=== PATIENT | male | born 1930 | race Caucasian/White ===

== ENCOUNTER 2020-12-21 14:02 | Inpatient (IN) | payer MEDICARE, OTHER ==
[~2020-12-21] VITALS: Ht 172.7 cm; Wt 68.0 kg
[2020-12-21] MEDS ORDERED: IV NORMAL SALINE 1000 ML BAG IV ONE (14:15)
--- NOTE | 2020-12-21 14:20 | NUR ---
PT out of ER for CT.
[2020-12-21] MEDS ORDERED: ASCO500T10 PO (14:39)
[2020-12-21] MEDS ORDERED: MULT-1045 PO (14:39)
[2020-12-21] MEDS ORDERED: MAG-55 PO (14:39)
[2020-12-21] MEDS ORDERED: LACT10SO3 PO (14:39)
[2020-12-21] MEDS ORDERED: DIVA250T4 PO (14:39)
[2020-12-21] MEDS ORDERED: DORZ10DR13 LEFTEYE (14:39)
[2020-12-21] MEDS ORDERED: MAGN400O6 PO (14:39)
[2020-12-21] MEDS ORDERED: ACET160S2 PO (14:39)
[2020-12-21] MEDS ORDERED: DOCU-141 PO (14:39)
[2020-12-21] MEDS ORDERED: BIMA2.5D5 EACHEYE (14:39)
[2020-12-21] MEDS ORDERED: NA P133E4 RC (14:39)
[2020-12-21] MEDS ORDERED: QUET25TA PO (14:39)
[2020-12-21 15:45] LABS: BASOPHILS % (AUTO) 0.2 % (0.0-2.0); EOSINOPHILS % (AUTO) 0.2 % (0.0-7.0); HEMATOCRIT 43.2 % (36.7-47.1); HEMOGLOBIN 15.4 g/dL (12.5-16.3); LYMPHOCYTES # (AUTO) 0.6 K/uL (20.0-40.0); LYMPHOCYTES % (AUTO) 7.5 % (20.5-51.5); MEAN CORPUSCULAR HEMOGLOBIN 30.9 uug (23.8-33.4); MEAN CORPUSCULAR HGB CONC 36 g/dL (32.5-36.3); MEAN CORPUSCULAR VOLUME 86.8 fL (73.0-96.2); MONOCYTES # (AUTO) 0.6 K/uL (2.0-10.0); MONOCYTES % (AUTO) 7.3 % (0.0-11.0); NEUTROPHILS # (AUTO) 7.1 K/uL (1.8-8.9); NEUTROPHILS % (AUTO) 84.8 % (38.5-71.5); PLATELET COUNT (AUTO) 380 K/uL (152-348); RED BLOOD CELL COUNT(AUTO) 4.98 MIL/uL (4.06-5.63); WHITE BLOOD COUNT (AUTO) 8.4 K/uL (3.6-10.2)
[2020-12-21 15:49] LABS: CREATININE 1.1 mg/dL (0.6-1.3); POTASSIUM 3.4 mmol/L (3.5-5.1)
[2020-12-21 15:55] LABS: BILIRUBIN,DIRECT 0.1 mg/dL (0.0-0.2); BILIRUBIN,TOTAL 0.6 mg/dL (0.2-1.0); TOTAL PROTEIN, SERUM 6.9 g/dL (6.4-8.2)
[2020-12-21] MEDS ORDERED: ONDANSETRON 4 MG/2 ML VIAL IV PRN (17:15)
[2020-12-21] MEDS ORDERED: MORPHINE SULFATE 2 MG/1 ML DISP.SYRIN IV PRN (17:15)
[2020-12-21] MEDS ORDERED: ACETAMINOPHEN 650 MG SUPP.RECT RC PRN (17:15)
[2020-12-21] MEDS ORDERED: IV NORMAL SALINE 500 ML IV ONE (17:30)
[2020-12-21] MEDS ORDERED: BIMATOPROST 0.01% OPHT DROP 2.5 ML BOTTLE EACHEYE SCH (18:00)
--- NOTE | 2020-12-21 18:00 | NUR ---
Received report from ER nurse, JEAN CARLOS Hoover. Pt admitted with c/o abdominal painx12 days. Pt given 1L NS in ER, getting 500cc bolus NS. Pt in bed, awake alert and oriented x4, pt on tele monitor Normal Sinus Rhythm/ Normal Sinus Arrhythmia. Pt on room air, no signs of distress not reports of pain noted at this time. Pt able to ambulate with 1 person assist, continent of bowel and bladder, pt has urinal at bedside. Pt on NPO diet, blind in the right eye. IV access on the left FA and the Right FA both 20g. Bed in low and locked position, call light within reach, safety and fall precautions in place. Will endorse to oncoming nurse.
[2020-12-21 19:00] VITALS: BP 116/48
[2020-12-21 20:00] VITALS: BP 104/32
[2020-12-21] MEDS: POTASSIUM CHLORIDE 20 MEQ in IV D5 1/2 NS 1000 ML 1,000 ML IV PRN (20:13)
[2020-12-21] MEDS: LATANOPROST OPHT DROP 2.5 ML BOTTLE EACHEYE SCH (20:28)
[2020-12-21] MEDS ORDERED: PIPERACILLIN SODIUM/TAZOBACTAM 3.375 G in IV DEXTROSE 5% 50 ML IV SCH (22:00)
[2020-12-21] MEDS ORDERED: VALPROATE SODIUM IV 250 MG in IV DEXTROSE 5% 100 ML IV SCH (22:00)
[2020-12-21] MEDS: PIPERACILLIN SODIUM/TAZOBACTAM 3.37 G in IV DEXTROSE 5% 100 ML IV SCH (22:04)
[2020-12-22] VITALS: BP 139/36
[2020-12-22 04:00] VITALS: BP 105/39
--- NOTE | 2020-12-22 04:50 | NUR ---
Pt slept intermittently throughout the night. Denies SOB or pain at this time. Requested Tylenol in the middle of the night for mild abdominal pain, tolerated Tylenol suppository well. Pt is NPO with fluids running, IV site patent. Bed is locked and in lowest position, call light is within reach. No other issues or concerns at this time, will endorse to day shift.
[2020-12-22] MEDS: PIPERACILLIN SODIUM/TAZOBACTAM 3.37 G in IV DEXTROSE 5% 100 ML IV SCH ×3 (05:02→21:45)
[2020-12-22 06:26] LABS: HEMATOCRIT 39.4 % (36.7-47.1); HEMOGLOBIN 13.5 g/dL (12.5-16.3); LYMPHOCYTES # (AUTO) 0.3 K/uL (20.0-40.0); LYMPHOCYTES % (AUTO) 2.4 % (20.5-51.5); MEAN CORPUSCULAR HGB CONC 34 g/dL (32.5-36.3); MEAN CORPUSCULAR VOLUME 87.8 fL (73.0-96.2); MONOCYTES # (AUTO) 0.2 K/uL (2.0-10.0); MONOCYTES % (AUTO) 2.1 % (0.0-11.0); NEUTROPHILS # (AUTO) 10.8 K/uL (1.8-8.9); NEUTROPHILS % (AUTO) 95.5 % (38.5-71.5); PLATELET COUNT (AUTO) 365 K/uL (152-348); RED BLOOD CELL COUNT(AUTO) 4.49 MIL/uL (4.06-5.63); WHITE BLOOD COUNT (AUTO) 11.3 K/uL (3.6-10.2)
[2020-12-22 06:53] LABS: ALANINE AMINOTRANSFERASE 21 U/L (16-63); ALKALINE PHOSPHATASE 80 U/L (50-136); ASPARTATE AMINOTRANSFERASE 17 U/L (15-37); BILIRUBIN,TOTAL 0.7 mg/dL (0.2-1.0); CARBON DIOXIDE 27 mmol/L (21-32); CHLORIDE 102 mmol/L (98-107); CHOLESTEROL 82 mg/dL (<200); GLUCOSE 99 mg/dL (74-106); HDL CHOLESTEROL 33 mg/dL (40-60); MAGNESIUM 1.9 mg/dL (1.8-2.4); PHOSPHOROUS 2.6 mg/dL (2.5-4.9); TOTAL PROTEIN, SERUM 5.7 g/dL (6.4-8.2); TRIGLYCERIDES 58 MG/DL (30-150); UREA NITROGEN, BLOOD 20 mg/dL (7-18)
[2020-12-22 06:58] LABS: THYROID STIMULATING HORMONE 2.642 mIU/mL (0.358-3.740)
[2020-12-22 07:00] LABS: IRON, SERUM 32 ug/dL (50-175)
[2020-12-22 07:19] LABS: VALPROIC ACID < 3 ug/mL (50-100)
[2020-12-22] MEDS: POTASSIUM CHLORIDE 50 ML IV SCH ×2 (08:21→09:41)
[2020-12-22 08:40] VITALS: BP 83/22
[2020-12-22] MEDS: PANTOPRAZOLE SODIUM 40 MG VIAL IV SCH (09:13)
[2020-12-22] MEDS: DORZOLAMIDE/TIMOLOL OPHT DROP 10 ML BOTTLE LEFTEYE SCH ×2 (09:13→16:17)
[2020-12-22 10:19] VITALS: BP 93/40
[2020-12-22] MEDS ORDERED: IV NORMAL SALINE 250 ML IV ONE (11:15)
[2020-12-22] MEDS ORDERED: DIATR MEGLU/DIATRIZOATE SODIUM 30 ML BOTTLE ONE (11:52)
[2020-12-22 15:51] VITALS: BP 130/43
[2020-12-22 20:00] VITALS: BP 108/42
[2020-12-22] MEDS: LATANOPROST OPHT DROP 2.5 ML BOTTLE EACHEYE SCH (21:45)
[2020-12-23] VITALS: BP 109/46
[2020-12-23 04:00] VITALS: BP 101/40
[2020-12-23] MEDS: POTASSIUM CHLORIDE 20 MEQ in IV D5 1/2 NS 1000 ML 1,000 ML IV PRN (04:50)
[2020-12-23 04:53] LABS: *BILIRUBIN,URIN NEGATIVE (NEGATIVE); *BLOOD, URINE 1+ (NEGATIVE); *CLARITY,URINE CLOUDY (CLEAR); *COLOR,URINE YELLOW (YELLOW); *KETONES,URINE NEGATIVE (NEGATIVE); *UROBILINOGEN,URINE 0.2 E.U./dl (NORMAL); LEUKOCYTE ESTERASE ,URINE TRACE (NEGATIVE); NITRITE, URINE NEGATIVE (NEGATIVE); PH,URINE 5.5 (5.0-8.0); UGLUCOSE NEGATIVE (NEGATIVE)
[2020-12-23 05:08] LABS: *URINE TOTAL PROTEIN RANDOM 52.9 mg/dL (<150/24HR)
[2020-12-23 05:10] LABS: BACTERIA,URINE MODERATE /HPF (NONE SEEN); SQUAMOUS EPITHELIAL CELL,UR FEW /HPF (NONE SEEN); URINE AMORPHOUS URATE MANY /HPF
[2020-12-23] MEDS: PIPERACILLIN SODIUM/TAZOBACTAM 3.37 G in IV DEXTROSE 5% 100 ML IV SCH ×3 (05:44→21:29)
[2020-12-23 06:25] LABS: BASOPHILS % (AUTO) 0.1 % (0.0-2.0); EOSINOPHILS % (AUTO) 0.6 % (0.0-7.0); HEMATOCRIT 35.6 % (36.7-47.1); HEMOGLOBIN 12.4 g/dL (12.5-16.3); LYMPHOCYTES # (AUTO) 0.6 K/uL (20.0-40.0); LYMPHOCYTES % (AUTO) 8.6 % (20.5-51.5); MEAN CORPUSCULAR HEMOGLOBIN 30.4 uug (23.8-33.4); MEAN CORPUSCULAR HGB CONC 35 g/dL (32.5-36.3); MEAN CORPUSCULAR VOLUME 87.4 fL (73.0-96.2); MONOCYTES # (AUTO) 0.8 K/uL (2.0-10.0); MONOCYTES % (AUTO) 10.1 % (0.0-11.0); NEUTROPHILS % (AUTO) 80.6 % (38.5-71.5); PLATELET COUNT (AUTO) 305 K/uL (152-348); RED BLOOD CELL COUNT(AUTO) 4.07 MIL/uL (4.06-5.63); WHITE BLOOD COUNT (AUTO) 7.5 K/uL (3.6-10.2)
[2020-12-23 06:50] LABS: CREATININE 0.9 mg/dL (0.6-1.3); MAGNESIUM 1.9 mg/dL (1.8-2.4); PHOSPHOROUS 2.1 mg/dL (2.5-4.9); POTASSIUM 3.2 mmol/L (3.5-5.1)
--- NOTE | 2020-12-23 06:51 | NUR ---
Pt stable through the shift. Denies any acute distress or pain at this time. V/S stable on room air. Comfort care and needs attended. Safety measures in place. Call light within reach. Will endorse to oncoming nurse.
[2020-12-23 08:00] VITALS: BP 105/43
[2020-12-23] MEDS: PANTOPRAZOLE SODIUM 40 MG VIAL IV SCH (09:19)
[2020-12-23] MEDS: DORZOLAMIDE/TIMOLOL OPHT DROP 10 ML BOTTLE LEFTEYE SCH ×2 (09:19→16:53)
[2020-12-23] MEDS ORDERED: POTASSIUM PHOSPHATE MM 15 MMOL in IV NORMAL SALINE 250 ML IV ONE (09:30)
[2020-12-23] MEDS: POTASSIUM PHOSPHATE MM 7.5 MMOL in IV NORMAL SALINE 97.5 ML IV SCH ×2 (10:13→13:45)
[2020-12-23 11:50] VITALS: BP 96/51
[2020-12-23] MEDS ORDERED: POTASSIUM CHLORIDE 50 ML IV SCH (12:00)
--- NOTE | 2020-12-23 19:04 | NUR ---
No significant changes during shift. Patient denies of any discomfort or pain. Patient cooperative with care. Will endorse to incoming shift.
[2020-12-23] MEDS: LATANOPROST OPHT DROP 2.5 ML BOTTLE EACHEYE SCH (20:31)
[2020-12-23 21:16] VITALS: BP 91/41
--- NOTE | 2020-12-23 22:14 | NUR ---
Patient in bed awake alert and able to make needs known.Denies abd'l pain.No s/s of distress noted.On RA.Iv on right FA 2 g patent and intact with IVF running well.Tolerated well.Due meds given.Adm IV aTb as ordered.No a/r noted.Will continue to monitor.
[2020-12-24 00:38] VITALS: BP 100/43
[2020-12-24 04:30] VITALS: BP 111/50
[2020-12-24] MEDS: PIPERACILLIN SODIUM/TAZOBACTAM 3.37 G in IV DEXTROSE 5% 100 ML IV SCH ×2 (05:05→13:10)
--- NOTE | 2020-12-24 07:30 | NUR ---
Alert and oriented. Able to make needs known. Denies pain. Right hand Iv site intact and patent. No signs of infiltration. Iv hydration and atb ongoing. No adverse reaction noted. No respiratory distress noted. Bed kept low and locked. Call light within reach. Will continue to monitor.
[2020-12-24 07:38] LABS: CREATININE 0.8 mg/dL (0.6-1.3); POTASSIUM 3.2 mmol/L (3.5-5.1)
[2020-12-24] MEDS: PANTOPRAZOLE SODIUM 40 MG VIAL IV SCH (08:03)
[2020-12-24] MEDS: POTASSIUM CHLORIDE 50 ML IV SCH ×2 (08:03→10:14)
[2020-12-24] MEDS: DORZOLAMIDE/TIMOLOL OPHT DROP 10 ML BOTTLE LEFTEYE SCH (08:09)
[2020-12-24] MEDS ORDERED: PIPE3.379 IV (12:28)
[2020-12-24] MEDS ORDERED: ACET-2154 PO (12:28)
[2020-12-24] MEDS ORDERED: ACID1TAB4 PO (12:28)
[2020-12-24 16:50] VITALS: BP 108/51
[2020-12-24] MEDS ORDERED: DORZOLAMIDE/TIMOLOL OPHT DROP 10 ML BOTTLE LEFTEYE SCH (17:00)
--- NOTE | 2020-12-24 18:08 | NUR ---
Patient is discharged to [facility]. Alert and oriented x4 able to make needs known. Denies abdominal pain. No nausea or vomiting. No respiratory distress on room air spo2 96%. Denies sob. Patient asked if he received flu shot and pna vaccine and he verbalized he received them but forgot when. Skin assessment done, intact. Belongings inventoried and confirmed by the patient. Report given to Frank Quiroz at [facility]. Patient was picked up by blender helper from [facility]. Left hospital in stable condition.
[2020-12-25] MEDS ORDERED: PANTOPRAZOLE SODIUM 40 MG TABLET.DR PO SCH (09:00)
== END 2020-12-24 18:00 | DRG 871 ==
LOC: ER 14:02 → TELE3 18:04
PROVIDERS: ADMIT Internal Medicine; ATTEND Internal Medicine
DX: A41.9 Sepsis, unspecified organism (principal); G93.41 Metabolic encephalopathy; N17.0 Acute kidney failure with tubular necrosis; A04.9 Bacterial intestinal infection, unspecified; D68.69 Other thrombophilia; E44.0 Moderate protein-calorie malnutrition; E87.1 Hypo-osmolality and hyponatremia; K56.50 Intestinal adhesions [bands], unspecified as to partial versus complete obstruction; J44.9 Chronic obstructive pulmonary disease, unspecified; F03.90 Unspecified dementia, unspecified severity, without behavioral disturbance, psychotic disturbance, mood disturbance, and anxiety; Z90.49 Acquired absence of other specified parts of digestive tract; E86.1 Hypovolemia; E87.6 Hypokalemia; F32.9 Major depressive disorder, single episode, unspecified; Z20.822 Contact with and (suspected) exposure to COVID-19; Z85.038 Personal history of other malignant neoplasm of large intestine; M19.90 Unspecified osteoarthritis, unspecified site; H54.61 Unqualified visual loss, right eye, normal vision left eye; R53.1 Weakness; I70.0 Atherosclerosis of aorta; F20.9 Schizophrenia, unspecified; N40.0 Benign prostatic hyperplasia without lower urinary tract symptoms; E86.9 Volume depletion, unspecified; F39 Unspecified mood [affective] disorder; Z68.22 Body mass index [BMI] 22.0-22.9, adult
CPT/HCPCS: 36415; 70030-TC; 70450; 71045; 74250; 80164; 82378; 83550; 83605; 83690; 83735; 83935; 84100; 84153; 84156; 84300; 84443; 85025; 87040; 87086; 93005; 93307; A4663; C9113; G0378; J2543; J3480; J3490; J7030; J7040; J7050; J7060; Q9963

== ENCOUNTER 2021-05-19 20:34 | Inpatient (IN) | payer MEDICARE, OTHER ==
[~2021-05-19] VITALS: Ht 180.3 cm; Wt 61.2 kg
[~2021-05-19 20:34] MED LIST: ACET-2154 PO; ACID1TAB4 PO; ASCO500T10 PO; BIMA2.5D5 EACHEYE; DIVA250T4 PO; DOCU-141 PO; DORZ10DR13 LEFTEYE; LACT10SO3 PO; MAG-55 PO; MAGN400O6 PO; MULT-1045 PO; NA P133E4 RC; PIPE3.379 IV; QUET25TA PO
[2021-05-19] MEDS ORDERED: PROCHLORPERAZINE EDISYLATE 10 MG/2 ML VIAL IV ONE (21:45)
[2021-05-19] MEDS ORDERED: IV NORMAL SALINE 1000 ML BAG IV ONE (21:45)
[2021-05-19] MEDS ORDERED: HYDROMORPHONE 1 MG/1 ML DISP.SYRIN IV ONE (21:45)
[2021-05-19] MEDS ORDERED: BIMA2.5D5 EACHEYE (21:54)
[2021-05-19] MEDS ORDERED: MAGN400O6 PO (21:54)
[2021-05-19] MEDS ORDERED: PILO15DR36 OP (21:54)
[2021-05-19] MEDS ORDERED: BRIM5DRO2 OP (21:54)
--- NOTE | 2021-05-19 22:24 | NUR ---
hvac refrigeration technician in room to draw blood from patient.
[2021-05-19 22:35] LABS: HEMATOCRIT 42.9 % (36.7-47.1); MEAN CORPUSCULAR HEMOGLOBIN 30.4 uug (23.8-33.4); MEAN CORPUSCULAR VOLUME 86.9 fL (73.0-96.2); PLATELET COUNT (AUTO) 243 K/uL (152-348)
[2021-05-19] MEDS ORDERED: PROCHLORPERAZINE EDISYLATE 10 MG/2 ML VIAL ONE (22:53)
[2021-05-19] MEDS ORDERED: HYDROMORPHONE 1 MG/1 ML DISP.SYRIN ONE (22:55)
[2021-05-19 22:57] LABS: CREATININE 0.8 mg/dL (0.6-1.3); POTASSIUM 3.8 mmol/L (3.5-5.1)
[2021-05-19 23:02] LABS: BILIRUBIN,DIRECT 0.2 mg/dL (0.0-0.2); TOTAL PROTEIN, SERUM 7.9 g/dL (6.4-8.2)
[2021-05-19] MEDS ORDERED: IOHEXOL 300MG/ML 100 ML INFUS..BTL ONE (23:10)
[2021-05-19] MEDS ORDERED: IV NORMAL SALINE 250 ML IV ONE (23:10)
[2021-05-19] MEDS ORDERED: SWABABLE VALVE TRANSFER SET EA MC ONE (23:10)
--- NOTE | 2021-05-19 23:10 | NUR ---
Patient out to CT scan.
--- NOTE | 2021-05-19 23:26 | NUR ---
Patient returned from CT scan.
[2021-05-19] MEDS ORDERED: LIDOCAINE 2% (UROJET) 10 ML JELLY MM ONE (23:45)
[2021-05-20] MEDS ORDERED: LIDOCAINE 2% (UROJET) 10 ML JELLY MM ONE ×4 (00:22→02:25)
--- NOTE | 2021-05-20 00:53 | NUR ---
Dr. Ralph on panel call with Dr. Jensen Jones.
[2021-05-20] MEDS ORDERED: HALOPERIDOL LACTATE 5 MG/1 ML VIAL IV ONE (01:00)
[2021-05-20] MEDS ORDERED: diphenhydrAMINE 50 MG/1 ML VIAL IV ONE (01:00)
[2021-05-20] MEDS ORDERED: LORAZEPAM 2 MG/1 ML VIAL IV ONE (01:00)
--- NOTE | 2021-05-20 01:00 | NUR ---
Patient pulled out NG tube before x-ray could be used to confirm placement. Patient attempting to pull IV, and other monitoring machines. MD Ralph notified
--- NOTE | 2021-05-20 01:00 | NUR ---
Carlos licona in ED - 05/20/21 at 0130 by SHAN Patient pulled out NG tube before x-ray could be used to confirm placement. MD Ralph notified.
--- NOTE | 2021-05-20 01:05 | NUR ---
Noted that patient has nosebleed after pulling his NG tube out. Pressure placed on bridge of nose to stop bleeding.
[2021-05-20] MEDS ORDERED: diphenhydrAMINE 50 MG/1 ML VIAL ONE (01:17)
[2021-05-20 01:18] LABS: *BILIRUBIN,URIN NEGATIVE (NEGATIVE); *BLOOD, URINE 2+ (NEGATIVE); *CLARITY,URINE CLEAR (CLEAR); *COLOR,URINE YELLOW (YELLOW); *KETONES,URINE 1+ (NEGATIVE); *UROBILINOGEN,URINE 0.2 E.U./dl (NORMAL); LEUKOCYTE ESTERASE ,URINE NEGATIVE (NEGATIVE); NITRITE, URINE NEGATIVE (NEGATIVE); UGLUCOSE NEGATIVE (NEGATIVE)
[2021-05-20] MEDS ORDERED: HALOPERIDOL LACTATE 5 MG/1 ML VIAL ONE (01:18)
[2021-05-20] MEDS ORDERED: LORAZEPAM 2 MG/1 ML VIAL ONE (01:19)
[2021-05-20 01:24] LABS: BACTERIA,URINE NONE SEEN /HPF (NONE SEEN); SQUAMOUS EPITHELIAL CELL,UR FEW /HPF (NONE SEEN); WBC,URINE 0-3 /HPF (0-3)
--- NOTE | 2021-05-20 02:51 | NUR ---
Multiple attempts made to place NG tube in patient. Patient does not cooperate. Unsuccessful, MD Ralph notifed.
--- NOTE | 2021-05-20 03:00 | NUR ---
Attempted to call for a room for patient, med/surg telemetry floor notified that there are no more nurses left to take patients at this time. Notified to check back during the day-shift hours for a room.
--- NOTE | 2021-05-20 05:10 | NUR ---
Patient resting on bed, attempting to periodically reach for his IV line, monitor wires to pull them off. Attempting to reorient patient is unsuccessful as he has dementia.
--- NOTE | 2021-05-20 07:00 | NUR ---
Hands-off report given to Suni EVANGELISTA.
--- NOTE | 2021-05-20 07:28 | NUR ---
Received patient in shift report, patient noted sleeping at this time, no signs of acute distress, vitals WNL
[2021-05-20 07:33] LABS: ABG BASE EXCESS 1.9 mmol/L; ABG HCO3 26.5 mmol/L; ABG PCO2 41.3 mmHg (35.0-45.0); ABG PH 7.425 (7.350-7.450); ABG PO2 58.8 mmHg (75.0-100.0); ABG SITE RIGHT RADIAL; ABG TOTAL HEMOGLOBIN 14.8 G/dL (13.5-18.0); COHb 1.7 % (0.5-1.5); MetHb 0.1 % (0.0-1.5); VENT MODE ROOM AIR
--- NOTE | 2021-05-20 07:57 | NUR ---
No bed available on Tele unit at this time
[2021-05-20] MEDS: BRIMONIDINE 0.2% OPHT DROP 10 ML BOTTLE EACHEYE SCH ×2 (09:00→21:00)
[2021-05-20] MEDS: DORZOLAMIDE/TIMOLOL OPHT DROP 10 ML BOTTLE LEFTEYE SCH ×2 (09:00→17:00)
[2021-05-20] MEDS ORDERED: TIMOLOL MALEATE 0.5% OPHT DROP 5 ML BOTTLE OP ONE (09:00)
--- NOTE | 2021-05-20 10:00 | NUR ---
Patient released from restraints and taken to restroom at this time, no signs of acute distress noted
[2021-05-20] MEDS ORDERED: Z GUARD REMEDY PASTE 57 GM TUBE TOP PRN (11:00)
[2021-05-20] MEDS ORDERED: ACETAMINOPHEN 325 MG TABLET PO PRN (11:00)
[2021-05-20] MEDS ORDERED: ONDANSETRON 4 MG/2 ML VIAL IV PRN (11:00)
--- NOTE | 2021-05-20 11:52 | NUR ---
Patient ambulated to restroom at this time, small BM noted
[2021-05-20] MEDS ORDERED: DIATR MEGLU/DIATRIZOATE SODIUM 30 ML BOTTLE ONE (11:59)
--- NOTE | 2021-05-20 15:23 | NUR ---
PATIENT ASSISTED TO RESTROOM AT THIS TIME, VITALS ARE STABLE, NO CHANGES NOTED
[2021-05-20] MEDS ORDERED: BIMATOPROST 0.01% OPHT DROP 2.5 ML BOTTLE EACHEYE SCH (18:00)
--- NOTE | 2021-05-20 18:27 | NUR ---
Surgical ELECTRICITY TRADING ANALYST Annalee noted speaking with patient at this time
--- NOTE | 2021-05-20 18:50 | NUR ---
Patient received from ER via wheelchair. Patient is alert and oriented x1-2 and confused. Requires reinforcements. Patient is on RA with no SOB or difficulties breathing. No acute distress noted. Right FA IV is patent with no redness or swelling noted. No complaints of pain or discomforts at this time. Patient requested urinal to void. All needs met. Personal belongings and call light within easy reach. Will continue to monitor.
--- NOTE | 2021-05-20 19:05 | NUR ---
Patient's BP at this time is 170/83. Informed Dr. Lares of patient's arrival and of BP with no new orders at this time.
--- NOTE | 2021-05-20 19:06 | NUR ---
Pt. admitted to Tele, under care of Dr. Lares Belongs List completed and all belonings sent
--- NOTE | 2021-05-20 20:00 | NUR ---
RECEIVED REPORT FORM AM NURSE PT IS ALERT BUT NOW SLEEPING ALERT AND ORIENTED X2 WITH PERIODS OF CONFUSION PT HAS RT FA 20G INFUSING LR AT 100 ML AND HOUR NO SIGNS OF RESPIRATORY DISTRESS NOTED. PT HAS BRP WITH ASSIST AND BOWEL MOVEMENT IN THE ER. PT IS COVID NEG PT HAS 02 2L NC TOLERATING WELL. PT SKIN IS INTACT NO SIGNS OF ABNORMALITY NOTED.PT DX IS HIGH GRADE SMALL BOWEL OBSTRUCTION. WILL CONTINUE TO MONITOR.VITAL SIGNS ARE WNL AND NO SIGNS OF ABNORMALITIES.
[2021-05-20 20:20] VITALS: BP 170/83
--- NOTE | 2021-05-20 20:50 | NUR ---
This patient was transferred out before my shift began. I am just departing him from ER.
[2021-05-20] MEDS: LATANOPROST OPHT DROP 2.5 ML BOTTLE EACHEYE SCH (21:59)
[2021-05-21 04:15] VITALS: BP 156/79
[2021-05-21 06:33] LABS: HEMATOCRIT 45.3 % (36.7-47.1); MEAN CORPUSCULAR HEMOGLOBIN 30.5 uug (23.8-33.4); MEAN CORPUSCULAR VOLUME 87.2 fL (73.0-96.2); PLATELET COUNT (AUTO) 283 K/uL (152-348)
[2021-05-21] MEDS: IV LACTATED RINGERS SOLUTION 1,000 ML IV PRN ×2 (06:49→21:52)
[2021-05-21 07:08] LABS: CREATININE 0.9 mg/dL (0.6-1.3); MAGNESIUM 2.4 mg/dL (1.8-2.4); PHOSPHOROUS 4.7 mg/dL (2.5-4.9); POTASSIUM 3.6 mmol/L (3.5-5.1)
--- NOTE | 2021-05-21 07:19 | NUR ---
SHIFT NOTE: RECEIVED REPORT FROM AM NURSE CLEMENCIA PT IS ALERT AND ORIENTED X2NO SIGNS OF EMESIS NOTED. PT DX IS SBO AND IS NPO PT HAS IV IN LT AC WHICH HAS LR INFUSING AT 80ML AND HOUR NO SIGNS OF RESPIRATORY DISTRESS NOTED. PT HAS HX OF COPD DEMENTIA, RENAL CALCULI,RT EYE BLINDNESS S/P RT HEMICOLECTOMY. PT IS ALERT AND ORIENTED X2 WITH CONFUSION. WILL ENDORSE TO AM NURSE.
--- NOTE | 2021-05-21 07:32 | NUR ---
Received resting in bed hob elevated. No respiratory distress noted. Denies pain at this time. Iv intact with hydration ongoing. No complaints. Safety measures in place. Kept comfortable. Call light within reach. Will continue to monitor.
[2021-05-21] MEDS: DORZOLAMIDE/TIMOLOL OPHT DROP 10 ML BOTTLE LEFTEYE SCH ×2 (09:09→16:24)
[2021-05-21] MEDS: BRIMONIDINE 0.2% OPHT DROP 10 ML BOTTLE EACHEYE SCH ×2 (09:09→16:24)
[2021-05-21 11:10] VITALS: BP 141/79
[2021-05-21 15:13] VITALS: BP 132/68
--- NOTE | 2021-05-21 17:57 | NUR ---
Xray small bowel follow through resulted. Sent result to Radha Adams NP via secure text. Also left her voicemail. Charge nurse aware.
--- NOTE | 2021-05-21 18:30 | NUR ---
HEMANT Adams with order to insert ngt. Explained to the patient sbft result small bowel obstruction but patient refused x2. Earlier patient stated he felt nauseated but refused Zofran. No vomiting noted. He denies nausea now.
--- NOTE | 2021-05-21 18:52 | NUR ---
Patient alert and oriented x2 with confusion. Kept npo. Iv intact and hydration ongoing and tolerated. C/o nausea earlier but no vomiting. Patient refused ngt as ordered despite explanation. Patient is kept comfortable. Repositioned and changed prn. Safety and fall measures maintained. Call light in reach.
[2021-05-21 20:00] VITALS: BP 121/66
[2021-05-21] MEDS: LATANOPROST OPHT DROP 2.5 ML BOTTLE EACHEYE SCH (21:51)
--- NOTE | 2021-05-21 22:00 | NUR ---
Pt refused NGT insertion; RUBBER GOODS ASSEMBLER Annalee is aware; continue pt to be NPO.
[2021-05-22 04:00] VITALS: BP 133/64
--- NOTE | 2021-05-22 05:55 | NUR ---
SHIFT NOTE; PT IS ALERT AND ORIENTED X2 HAS IVF OF LR INFUSING AT 80ML/HR TOLERATING WELL NO SIGNS OF EMESIS NOTED BUT HASNT GIVEN PATIENT ANY FLUIDS PER HIS REQUEST. PT MONITOR EVERY 2 HOURS AND EYE GTTS GIVEN SCHEDULED. WILL CONTINUE TO MONITOR HOURLY.
[2021-05-22 08:55] VITALS: BP 131/66
[2021-05-22] MEDS: BRIMONIDINE 0.2% OPHT DROP 10 ML BOTTLE EACHEYE SCH ×2 (10:37→18:54)
[2021-05-22] MEDS: DORZOLAMIDE/TIMOLOL OPHT DROP 10 ML BOTTLE LEFTEYE SCH ×2 (10:38→18:55)
[2021-05-22 12:00] VITALS: BP 155/56
[2021-05-22 15:49] VITALS: BP 128/71
--- NOTE | 2021-05-22 19:00 | NUR ---
RECD PT IN BED,ABLE TO RESPOND TO HIS NAME, NPO MAINTAINED, ORAL CARE DONE.EYE MED. GIVEN TO EACH EYE.IVF INFUSING WELL TO LEFT FOREARM G 22, NOSSX OF INFILTRATION. SLEPT ON AND OFF.NEEDS ATTENDED TO, REPOSITIONED FOR COMFORT.
[2021-05-22 20:00] VITALS: BP 134/65
[2021-05-22] MEDS: IV LACTATED RINGERS SOLUTION 1,000 ML IV PRN (20:02)
[2021-05-22] MEDS: LATANOPROST OPHT DROP 2.5 ML BOTTLE EACHEYE SCH (21:26)
--- NOTE | 2021-05-23 00:11 | NUR ---
NO VOMITING NOTED.CALM AND QUIET DEMEANOR OBSERVED. NOTHING UNUSUAL NOTED.
[2021-05-23 06:13] LABS: HEMATOCRIT 49.5 % (36.7-47.1); MEAN CORPUSCULAR HEMOGLOBIN 30.4 uug (23.8-33.4); MEAN CORPUSCULAR VOLUME 87.9 fL (73.0-96.2); PLATELET COUNT (AUTO) 306 K/uL (152-348)
[2021-05-23 06:30] LABS: CARBON DIOXIDE 32 mmol/L (21-32); CHLORIDE 102 mmol/L (98-107); CREATININE 1.4 mg/dL (0.6-1.3); GLUCOSE 136 mg/dL (74-106); MAGNESIUM 2.7 mg/dL (1.8-2.4); PHOSPHOROUS 4.8 mg/dL (2.5-4.9); POTASSIUM 3.2 mmol/L (3.5-5.1)
[2021-05-23 07:47] LABS: UREA NITROGEN, BLOOD 83 mg/dL (7-18)
[2021-05-23] MEDS ORDERED: IV NS 1000 ML 1,000 ML IV PRN (08:00)
--- NOTE | 2021-05-23 08:00 | NUR ---
Received patient a/ox2, with episode of forgetfulness. Patient was reported with critical BUN 83, informed Dr Higgins, ordered NS 1L 100ml/hr x 10hrs, carried out. Seen by Dr. Higgins Remained NPO. MD ordered XR small bowel follow through. Will continue to monitor.
[2021-05-23] MEDS: DORZOLAMIDE/TIMOLOL OPHT DROP 10 ML BOTTLE LEFTEYE SCH ×2 (08:56→17:54)
[2021-05-23] MEDS: BRIMONIDINE 0.2% OPHT DROP 10 ML BOTTLE EACHEYE SCH ×2 (08:56→17:55)
[2021-05-23] MEDS: POTASSIUM CHLORIDE 50 ML IV SCH ×3 (09:43→17:53)
--- NOTE | 2021-05-23 10:30 | NUR ---
At 1030H: patient was noted with hypotension 70/[address] Higgins made aware, ordered 500cc NS bolus. at 1100 BP improved at 110/49. Will continue to monitor.
[2021-05-23 10:40] VITALS: BP 109/54
--- NOTE | 2021-05-23 12:00 | NUR ---
At 1130H, patient was noted with liquid emesis, light green in color. XR staff came, suspended the second XR at this time. Zofran given IV as ordered. VS as follows. BP80/40, HR 69, o2sat 84% on 3Lpm via NC. Noted with confusion and agitation. Reported to . 1137H Rapid response team activated 1138H Hooked on monitor, SVT 170. 1141H Dr. Higgins ordered STAT ABG and STAT transfer to CCU 1145H VS BP 85/57, HR 69, 02 sat 84% 1158H Transferred patient to CCU, report given to nurse Jaimes Informed next of kin: [facility] of transfer.
[2021-05-23 12:17] LABS: ABG BASE EXCESS -13.2 mmol/L; ABG HCO3 16.9 mmol/L; ABG PCO2 53.9 mmHg (35.0-45.0); ABG PH 7.113 (7.350-7.450); ABG PO2 43.7 mmHg (75.0-100.0); ABG SITE RIGHT BRACHIAL; ABG TOTAL HEMOGLOBIN 18.5 G/dL (13.5-18.0); COHb 1.5 % (0.5-1.5); MetHb 0.3 % (0.0-1.5); O2Hb 58.9 % (94.0-97.0); VENT MODE Nasal Cannula
--- NOTE | 2021-05-23 12:17 | NUR ---
Patient transferred to CCU via bed. Report received from Marylou EVANGELISTA.
[2021-05-23] MEDS ORDERED: PROPOFOL 100 ML IV PRN (12:45)
[2021-05-23] MEDS ORDERED: PHENYLEPHRINE IV 50 MG in IV NORMAL SALINE 245 ML IV PRN (13:15)
[2021-05-23 13:29] LABS: ABG BASE EXCESS -11.5 mmol/L; ABG HCO3 14.9 mmol/L; ABG PCO2 35.7 mmHg (35.0-45.0); ABG PH 7.237 (7.350-7.450); ABG PO2 54.7 mmHg (75.0-100.0); ABG SITE RIGHT FEMORAL; ABG TOTAL HEMOGLOBIN 17.8 G/dL (13.5-18.0); COHb 1.5 % (0.5-1.5); MetHb 0.2 % (0.0-1.5)
[2021-05-23] MEDS: PHENYLEPHRINE IV 50 MG in IV NORMAL SALINE 245 ML IV PRN ×2 (14:14→17:54)
--- NOTE | 2021-05-23 14:14 | NUR ---
Patient intubated at 1305 by ER physician and RTs at bedside. Vent setting: AC 14, TV 500, FiO2 100%, PEEP 5. NG tube inserted, per MD order. CXR order placed - pending result. SBP 80s upon receiving patient from 3rd floor, HR 150-170. Neosynephrine initiated as ordered. Cruz inserted, draining via gravity. Order placed for PICC placement, will arrive this afternoon per PICC RN. Will continue to monitor.
[2021-05-23] MEDS ORDERED: IV NORMAL SALINE 500 ML IV ONE (15:30)
[2021-05-23] MEDS ORDERED: SODIUM BICARBONATE 8.4% 50 MEQ/50 ML DISP.SYRIN IV ONE (15:30)
[2021-05-23] MEDS ORDERED: SUCCINYLCHOLINE CHLORIDE 200 MG/10 ML VIAL IV ONE (15:56)
[2021-05-23] MEDS ORDERED: ETOMIDATE 20 MG/10 ML VIAL IV ONE (15:56)
[2021-05-23] MEDS ORDERED: DIATR MEGLU/DIATRIZOATE SODIUM 120 ML BOTTLE MC ONE (16:12)
[2021-05-23 16:26] LABS: CARBON DIOXIDE 23 mmol/L (21-32); CHLORIDE 106 mmol/L (98-107); CREATININE 3.3 mg/dL (0.6-1.3); GLUCOSE 88 mg/dL (74-106); POTASSIUM 4.9 mmol/L (3.5-5.1)
[2021-05-23 16:27] LABS: HEMATOCRIT 51.1 % (36.7-47.1); MEAN CORPUSCULAR HEMOGLOBIN 30.5 uug (23.8-33.4); MEAN CORPUSCULAR VOLUME 92.2 fL (73.0-96.2); PLATELET COUNT (AUTO) 240 K/uL (152-348)
[2021-05-23 16:32] LABS: UREA NITROGEN, BLOOD 97 mg/dL (7-18)
[2021-05-23 17:54] VITALS: BP 134/56
--- NOTE | 2021-05-23 19:50 | NUR ---
Airam morrow called at 1800. See Code Blue form. Patient at 181. Post-mortem care done. Spoke with Brii from [facility]. Per Brii, [facility] will not be moving forward. Reference ID [id number]. Spoke with Juan from [facility] to notify any next of kin - per Juan, no next of kin and will notify facility DON. notified.
== END 2021-05-23 20:08 | DRG 388 ==
LOC: ER 20:36 → TRANSITION 05-20 09:28 → TELE3 05-20 18:37 → MEDSURG3 05-20 18:55 → CCU 05-23 12:47
PROVIDERS: ADMIT Student in an Organized Health Care Education/Training Program; ATTEND Family Medicine
PROC: 06HY33Z Insertion of Infusion Device into Lower Vein, Percutaneous Approach (ICD-10-PCS; principal; 2021-05-23)
PROC: 5A1935Z Respiratory Ventilation, Less than 24 Consecutive Hours (ICD-10-PCS; 2021-05-23)
PROC: 0BH17EZ Insertion of Endotracheal Airway into Trachea, Via Natural or Artificial Opening (ICD-10-PCS; 2021-05-23)
DX: K56.50 Intestinal adhesions [bands], unspecified as to partial versus complete obstruction (principal); J96.90 Respiratory failure, unspecified, unspecified whether with hypoxia or hypercapnia; N17.0 Acute kidney failure with tubular necrosis; E86.0 Dehydration; Z85.038 Personal history of other malignant neoplasm of large intestine; Z90.49 Acquired absence of other specified parts of digestive tract; F03.90 Unspecified dementia, unspecified severity, without behavioral disturbance, psychotic disturbance, mood disturbance, and anxiety; F20.9 Schizophrenia, unspecified; I46.9 Cardiac arrest, cause unspecified; J44.9 Chronic obstructive pulmonary disease, unspecified; M19.90 Unspecified osteoarthritis, unspecified site; N20.0 Calculus of kidney; N28.1 Cyst of kidney, acquired; N40.0 Benign prostatic hyperplasia without lower urinary tract symptoms; Z77.090 Contact with and (suspected) exposure to asbestos; Z78.1 Physical restraint status; Z79.899 Other long term (current) drug therapy; Z20.822 Contact with and (suspected) exposure to COVID-19; E86.9 Volume depletion, unspecified; H26.9 Unspecified cataract
CPT/HCPCS: 36415; 36600; 71045; 74250; 83605; 83690; 83735; 84100; 85025; 85730; 87070; 93005; 94002; G0378; J0330; J0780; J1170; J1200; J1630; J2060; J2370; J2405; J3480; J3490; J7030; J7040; J7050; J7120; Q9963; Q9967